=== PATIENT | male | born 1985 | race Caucasian/White ===

== ENCOUNTER → 2024-10-01 13:50 | Outpatient (REF) | payer BC, SELFPAY | LOC: RAD 13:50 | PROVIDERS: ATTENDING PHYSICIAN Student in an Organized Health Care Education/Training Program | DX: K62.89 Other specified diseases of anus and rectum (principal) | CPT/HCPCS: 76857 ==

== ENCOUNTER → 2025-01-01 12:25 | Outpatient (REF) | payer BC, SELFPAY | LOC: EMG 12:25 | PROVIDERS: ATTENDING PHYSICIAN Physician Assistant Surgical; FAMILY PHYSICIAN Student in an Organized Health Care Education/Training Program | DX: M25.512 Pain in left shoulder (principal); R20.0 Anesthesia of skin | CPT/HCPCS: 95886; 95910 ==

== ENCOUNTER → 2025-01-05 13:30 | Outpatient (REF) | payer BC, SELFPAY | LOC: RAD 13:30 | PROVIDERS: ATTENDING PHYSICIAN Physician Assistant Surgical; FAMILY PHYSICIAN Student in an Organized Health Care Education/Training Program | DX: M25.512 Pain in left shoulder (principal) | CPT/HCPCS: 23350; 73040; 73222 ==

== ENCOUNTER → 2025-01-09 13:17 | Outpatient (REF) | payer BC, SELFPAY | LOC: MRI 3T 13:17 | PROVIDERS: ATTENDING PHYSICIAN Physician Assistant Surgical; FAMILY PHYSICIAN Student in an Organized Health Care Education/Training Program | DX: M25.512 Pain in left shoulder (principal) | CPT/HCPCS: 23350; 73040 ==

== ENCOUNTER → 2025-01-11 11:34 | Outpatient (REF) | payer BC, SELFPAY | LOC: PAVMRI 11:34 | PROVIDERS: ATTENDING PHYSICIAN Physician Assistant; FAMILY PHYSICIAN Student in an Organized Health Care Education/Training Program | DX: M54.14 Radiculopathy, thoracic region (principal); M54.16 Radiculopathy, lumbar region; M54.12 Radiculopathy, cervical region | CPT/HCPCS: 72141; 72146; 72148 ==

== ENCOUNTER → 2025-01-21 17:59 | Outpatient (REF) | payer BC, SELFPAY | LOC: PAVMRI 17:59 | PROVIDERS: ATTENDING PHYSICIAN Orthopaedic Surgery; FAMILY PHYSICIAN Student in an Organized Health Care Education/Training Program | DX: M25.562 Pain in left knee (principal) | CPT/HCPCS: 73721 ==

== ENCOUNTER → 2025-01-22 10:46 | Outpatient (REF) | payer BC, SELFPAY | LOC: EMG 10:46 | PROVIDERS: ATTENDING PHYSICIAN Student in an Organized Health Care Education/Training Program; FAMILY PHYSICIAN Student in an Organized Health Care Education/Training Program | DX: R20.0 Anesthesia of skin (principal) | CPT/HCPCS: 95886; 95910 ==

== ENCOUNTER → 2025-02-01 09:35 | Outpatient (REF) | payer BC, SELFPAY | LOC: PAVMRI 09:35 | PROVIDERS: ATTENDING PHYSICIAN Student in an Organized Health Care Education/Training Program; FAMILY PHYSICIAN Student in an Organized Health Care Education/Training Program | DX: M25.572 Pain in left ankle and joints of left foot (principal); M79.672 Pain in left foot | CPT/HCPCS: 73718; 73721 ==